=== PATIENT | male | born 1980 | race African-American/Black ===

== ENCOUNTER 2020-11-12 22:15 | Emergency (ER) | payer MEDICAID, OTHER ==
[~2020-11-12] VITALS: Ht 185.4 cm; Wt 73.0 kg
[2020-11-12 22:31] VITALS: BP 140/80
[2020-11-12] MEDS ORDERED: ACETAMINOPHEN 325MG TABLET PO ONE (22:45)
== END 2020-11-13 00:10 ==
LOC: ER 22:15
DX: R07.81 Pleurodynia (principal); R03.0 Elevated blood-pressure reading, without diagnosis of hypertension; F10.929 Alcohol use, unspecified with intoxication, unspecified; Y90.9 Presence of alcohol in blood, level not specified; Z87.828 Personal history of other (healed) physical injury and trauma
CPT/HCPCS: 71045; 99283